=== PATIENT | female | born 1995 | race Caucasian/White ===

== ENCOUNTER 2017-08-30 18:28 | Emergency (ER) | payer OTHER ==
[~2017-08-30] VITALS: Ht 167.6 cm; Wt 67.6 kg
[~2017-08-30 18:28] MED LIST: BACTRIM DS TAB1 EACH PO; ZOFRAN4 MG PO
[2017-08-30] MEDS ORDERED: UNICOMPLEX M TA1 TA1 PO (18:46)
[2017-08-30] MEDS ORDERED: ONDANSETRON HCL4 M2 PO (19:58)
[2017-08-30 20:13] VITALS: BP 115/71
== END 2017-08-30 20:14 | disposition home or self-care (01) ==
LOC: M.ERS 18:28
DX: S09.8XXA Other specified injuries of head, initial encounter (principal); W20.8XXA Other cause of strike by thrown, projected or falling object, initial encounter; Y93.89 Activity, other specified; Y92.89 Other specified places as the place of occurrence of the external cause; Y99.8 Other external cause status